=== PATIENT | female | born 1965 | race Caucasian/White ===

== ENCOUNTER → 2017-02-20 | Outpatient (CLI) | payer OTHER ==
[~2017-02-20] MED LIST: LASIX40 MG PO; LIPITOR20 MG PO; LOMOTIL 0.025-21 TAB PO; PRILOSEC20 MG PO; PROGESTERONE100 MG PO
== END | disposition short-term general hospital (02) ==
LOC: CLNEPH 09:01
DX: N20.0 Calculus of kidney (principal); I10 Essential (primary) hypertension; R31.29 Other microscopic hematuria; N26.1 Atrophy of kidney (terminal); N39.0 Urinary tract infection, site not specified; E78.5 Hyperlipidemia, unspecified; R60.0 Localized edema; Q60.2 Renal agenesis, unspecified; R39.12 Poor urinary stream

== ENCOUNTER 2017-02-25 12:08 | Observation (INO) | payer OTHER ==
[~2017-02-25] VITALS: Ht 160 cm; Wt 85.3 kg
[2017-02-25] MEDS ORDERED: LASIX40 MG PO (17:39)
[2017-02-25] MEDS ORDERED: LIPITOR20 MG PO (17:39)
[2017-02-25] MEDS ORDERED: PRILOSEC20 MG PO (17:39)
[2017-02-25] MEDS ORDERED: PROGESTERONE100 MG PO (17:40)
[2017-02-26] MEDS ORDERED: LOMOTIL 0.025-21 TAB PO (13:48)
== END 2017-02-26 14:15 | disposition short-term general hospital (02) ==
LOC: INF/INJ 12:08 → OBS 16:45 → IP 16:45
PROVIDERS: ADMIT Family Medicine
DX: K52.9 Noninfective gastroenteritis and colitis, unspecified (principal); E86.0 Dehydration; Z88.8 Allergy status to other drugs, medicaments and biological substances; Z79.899 Other long term (current) drug therapy
CPT/HCPCS: G0378; G0379; J2405